=== PATIENT | female | born 1995 | race Two or more races ===

== ENCOUNTER 2025-01-24 14:40 | Emergency (ER) | payer OTHER ==
[~2025-01-24] VITALS: Ht 160 cm; Wt 89.9 kg
[2025-01-24 14:45] VITALS: BP 143/72; PULSE 102; RESP 18; TEMP 98.4; O2SAT 98
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
== END 2025-01-24 17:57 | disposition home or self-care (01) ==
LOC: ER 14:40
DX: O26.891 Other specified pregnancy related conditions, first trimester (principal); R10.2 Pelvic and perineal pain; Z3A.01 Less than 8 weeks gestation of pregnancy; V43.52XA Car driver injured in collision with other type car in traffic accident, initial encounter; Y93.89 Activity, other specified; Y92.89 Other specified places as the place of occurrence of the external cause; Y99.8 Other external cause status
CPT/HCPCS: 36415; 76801; 76817; 84702